=== PATIENT | male | born 1970 | race Caucasian/White ===

== ENCOUNTER 2018-10-01 17:42 | Emergency (ER) | payer OTHER ==
[2018-10-01 18:03] VITALS: TEMP 97.9; BMI 29.0
[2018-10-01] MEDS ORDERED: ASPIRIN 81 MG CHEWABLE TABLETS PO ONE (20:27)
[2018-10-01] MEDS ORDERED: SODIUM CHLORIDE 1,000 ML IV STA (20:27)
--- NOTE | 2018-10-01 20:36 | PDOC ---
History of Present Illness <Christy Valenzuela - Last Filed: 10/01/18 22:12> - General History Source: Patient Exam Limitations: No Limitations - History of Present Illness Initial Comments: 10/01/18 20:26 HISTORY OF PRESENT ILLNESS: This is a 48-year-old male denies medical history presents emergency department for evaluation of intermittent sternal chest pain and epigastric pain over the past 2 days. States the pain started while he was at rest and the pain spontaneously resolves. Patient reports one episode of vomiting today which was undigested food. Patient states she was seen and evaluated in [facility] on 09/30 and was given meloxicam for [place] skeletal pain. He states no EKG or blood testing was performed at that time. Denies any shortness of breath, dizziness, fevers, chills, diarrhea. No recent travel or sick contacts. PAST MEDICAL HISTORY: Denies past medical history SURGICAL HISTORY: Denies ALLERGIES: No known drug allergies REVIEW OF SYSTEMS General/Constitutional: Denies fever or chills. Denies weakness, weight change. HEENT: Denies change in vision. Denies ear pain or discharge. Denies sore throat. Cardiovascular: Reports midsternal chest pain. Denies shortness of breath. Respiratory: Denies cough, wheezing, or hemoptysis. Gastrointestinal: (+)Epigastric pain and vomiting. Denies nausea, diarrhea or constipation. Denies rectal bleeding. Genitourinary: Denies dysuria, frequency, or change in urination. Musculoskeletal: Denies joint or muscle swelling or pain. Denies neck or back pain. Skin and breasts: Denies rash or easy bruising. Neurologic: Denies headache, vertigo, loss of consciousness, or loss of sensation. Psychiatric: Denies depression or anxiety. Endocrine: Denies increased thirst. Denies abnormal weight change. Hematologic/Lymphatic: Denies anemia, easy bleeding, or history of blood clots. Allergic/Immunologic: Denies hives or skin allergy. Denies latex allergy. PHYSICAL EXAM General Appearance: Well-appearing, appropriately dressed. No apparent distress , no intoxication. HEENT: EOMI, PERRLA, normal ENT inspection, normal voice, TMs normal, pharynx normal. No conjunctival pallor. No photophobia, scleral icterus. Neck: Supple. Trachea midline. No tenderness, rigidity, carotid bruit, stridor , lymphadenopathy, or thyromegaly. Respiratory/Chest: Lungs CTAB. No shortness of breath, chest tenderness, respiratory distress, accessory muscle use. No crackles, rales, rhonchi, stridor , wheezing, dullness Cardiovascular: RRR. S1, S2. No JVD, murmur, bradycardia, tachycardia. Vascular Pulses: Dorsalis-Pedis (R): 2+, Dorsalis-Pedis (L): 2+ Gastrointestinal/Abdominal: Normal bowel sounds. Abdomen soft, non-distended. No tenderness or rebound tenderness. No organomegaly, pulsatile mass, guarding, hernia, hepatomegaly, splenomegaly. Lymphatic: No adenopathy, tenderness. Musculoskeletal/Extremities: Normal inspection. FROM of all extremities, normal capillary refill. Pelvis Stable. No CVA tenderness. No tenderness to extremities, pedal edema, swelling, erythema or deformity. Integumentary: Appropriate color, dry, warm. No cyanosis, erythema, jaundice or rash Neurologic: welt edge rounder II-XII intact. Fully oriented, alert. Appropriate mood/affect. Motor strength 5/5. No appreciable EOM palsy, facial droop or sensory deficit. <Juan J Lamar - Last Filed: 10/01/18 22:41> - General Chief Complaint: Chest Pain Stated Complaint: CHEST PAIN/ABD PAIN Time Seen by Provider: 10/01/18 19:48 Past History <Christy Valenzuela - Last Filed: 10/01/18 22:12> - Past Medical History COPD: No - Suicide/Smoking/Psychosocial Hx Smoking History: Never smoked Hx Alcohol Use: No Drug/Substance Use Hx: No <Juan J Lamar - Last Filed: 10/01/18 22:41> - Past Medical History Allergies/Adverse Reactions: Allergies Allergy/AdvReac Type Severity Reaction Status Date / Time No Known Allergies Allergy Verified 10/01/18 17:59 Home Medications: Ambulatory Orders Cyclobenzaprine HCl [Flexeril] 5 mg PO TID #10 tablet 02/12/15 Ibuprofen [Motrin -] 600 mg PO QID #28 tablet 02/12/15 *Physical Exam - Vital Signs Last Vital Signs Temp Pulse Resp BP Pulse Ox 97.9 F 67 18 144/89 99 10/01/18 17:59 10/01/18 17:59 10/01/18 17:59 10/01/18 17:59 10/01/18 17:59 <Christy Valenzuela - Last Filed: 10/01/18 22:12> - Vital Signs Last Vital Signs Temp Pulse Resp BP Pulse Ox 97.9 F 67 18 144/89 99 10/01/18 17:59 10/01/18 17:59 10/01/18 17:59 10/01/18 17:59 10/01/18 17:59 <Juan J Lamar - Last Filed: 10/01/18 22:41> Moderate Sedation - Procedure Monitoring Vital Signs: Procedure Monitoring Vital Signs Temperature 97.9 F 10/01/18 17:59 Pulse Rate 67 10/01/18 17:59 Respiratory Rate 18 10/01/18 17:59 Blood Pressure 144/89 10/01/18 17:59 O2 Sat by Pulse Oximetry (%) 99 10/01/18 17:59 <Christy Valenzuela - Last Filed: 10/01/18 22:12> - Procedure Monitoring Vital Signs: Procedure Monitoring Vital Signs Temperature 97.9 F 10/01/18 17:59 Pulse Rate 67 10/01/18 17:59 Respiratory Rate 18 10/01/18 17:59 Blood Pressure 144/89 10/01/18 17:59 O2 Sat by Pulse Oximetry (%) 99 10/01/18 17:59 <Juan J Lamar - Last Filed: 10/01/18 22:41> Heart Score/ECG Review - ECG Intrepretation Rhythm: Regular Rhythm - [place]: Normal - P and AL Prominent R with upright T in V1 (true posterior MA): No Delta Wave(s) Present: No WPW: No - QRS Poor R Wave Progression: No Q Wave Present: No - ST and T Early Repolarization: No Non Specific ST-T Wave changes: No Flattened T Waves: No Prolonged Q-T Interval: No - ECG Impressions Normal ECG: Yes Non-specific ST Elevation: No Ischemic Changes: No (only one lead -insignificant) <Christy Valenzuela - Last Filed: 10/01/18 22:12> - History History: Slightly suspicious - Electrocardiogram EKG: Normal - Age Age: 45-65 - Risk Factors Based on the list above the patient has:: No risk factors known - Troponin Troponin: </= normal limit - Score Heart Score - Total: 1 <Juan J Lamar - Last Filed: 10/01/18 22:41> ED Treatment Course - LABORATORY CBC & Chemistry Diagram: 10/01/18 20:41 10/01/18 20:41 - ADDITIONAL ORDERS Additional order review: Laboratory Results 10/01/18 10/01/18 20:41 20:41 PT with INR 12.20 INR 1.03 Sodium 141 Potassium 3.9 Chloride 105 Carbon Dioxide 30 Anion Gap 5 L BUN 19 H Creatinine 1.1 Creat Clearance w eGFR > 60 Random Glucose 123 H Calcium 8.6 Magnesium 2.0 Total Bilirubin 0.5 AST 14 L ALT 23 Alkaline Phosphatase 49 Creatine Kinase 256 Troponin I < 0.02 Total Protein 7.2 Albumin 3.9 Lipase 143 10/01/18 20:41 RBC 4.49 MCV 91.7 MCHC 34.8 RDW 14.0 MPV 9.2 Neutrophils % 66.5 Lymphocytes % 25.6 Monocytes % 7.5 Eosinophils % 0.1 Basophils % 0.3 - Medications Given in the ED: ED Medications Discontinued Medications Generic Name Dose Route Start Last Admin Trade Name Freq PRN Reason Stop Dose Admin Aspirin 162 mg 10/01/18 20:27 10/01/18 21:25 Asa - PO 10/01/18 20:28 162 mg ONCE ONE Administration Sodium Chloride 1,000 mls @ 1,000 mls/hr 10/01/18 20:27 10/01/18 21:25 Normal Saline - IV 10/01/18 21:26 1,000 mls/hr ASDIR STA Administration <Christy Valenzuela - Last Filed: 10/01/18 22:12> - LABORATORY CBC & Chemistry Diagram: 10/01/18 20:41 10/01/18 20:41 <Juan J Lamar - Last Filed: 10/01/18 22:41> Medical Decision Making - Medical Decision Making 10/01/18 20:50 A/P: 48-year-old male with intermittent chest and epigastric pain for 2 days Lungs clear to auscultation bilaterally No chest tenderness noted S1 and S2 present. No murmur, rub or gallop noted. Abdomen soft nontender nondistended Differential diagnosis includes but not limited to: ACS, GERD, pneumonia, musculoskeletal pain, hiatal hernia Labs, urine, EKG, chest x-ray. Likely discharge 10/01/18 22:39 Chest x-rays read by me: No pneumothorax is seen. Angles are clear. Cardiac silhouette is within normal limits. No focal consolidations or infiltrates present. EKG reviewed by me as interpreted by Dr. Valenzuela sinus rhythm with rate of 73. Normal intervals noted. Laboratory testing is unremarkable with normal troponin. WBC 11,000 without a shift. Likely reactive. I'll discharge the patient home to follow-up with his primary doctor for continued evaluation. I discussed the physical exam findings, ancillary test results and final diagnoses with the patient. I answered all of the patient's questions. The patient was satisfied with the care received and felt comfortable with the discharge plan and treatment plan. The patient will call their primary care physician within 24 hours to arrange follow-up and will return to the Emergency Department with any new, persistent or worsening symptoms. <Juan J Lamar - Last Filed: 10/01/18 22:41> *DC/Admit/Observation/Transfer <Christy Valenzuela - Last Filed: 10/01/18 22:12> - Discharge Dispostion Decision to Admit order: No <Juan J Lamar - Last Filed: 10/01/18 22:41> Diagnosis at time of Disposition: Chest pain, atypical - Discharge Dispostion Disposition: HOME Condition at time of disposition: Stable - Referrals Referrals: Julia Cunha MD [Staff Physician] - - Patient Instructions Printed Discharge Instructions: DI for Atypical Chest Pain Additional Instructions: Return to emergency department for any worsening chest pain, shortness of breath , dizziness, sweating, or any other concerns.
[2018-10-01 20:51] LABS: BASO % 0.3 % (0-2.0); EOS % 0.1 % (0-4.5); HEMATOCRIT 41.2 % (35.4-49); HEMOGLOBIN 14.3 GM/dL (11.7-16.9); LYMPH % 25.6 % (8-40); MCH 31.9 pg (25.7-33.7); MCHC 34.8 g/dl (32.0-35.9); MEAN CELL VOLUME 91.7 fl (80-96); MEAN PLT VOLUME 9.2 fl (7.5-11.1); MONO % 7.5 % (3.8-10.2); NEUT % 66.5 % (42.8-82.8); PLATELET COUNT 217 K/MM3 (134-434); RBC 4.49 M/mm3 (4.00-5.60)
[2018-10-01 21:15] LABS: INR 1.03 (0.83-1.09); PROTHROMBIN TIME (PATIENT) 12.2 SEC (9.7-13.0)
[2018-10-01] MEDS ORDERED: ASPIRIN 81 MG CHEWABLE TABLETS ONE (21:23)
[2018-10-01 22:02] LABS: ALBUMIN 3.9 g/dl (3.4-5.0); ALK PHOS 49 U/L (45-117); ANION GAP 5 MMOL/L (8-16); BILIRUBIN,TOTAL 0.5 mg/dL (0.2-1); BLOOD UREA NITROGEN 19 mg/dL (7-18); CALCIUM 8.6 mg/dL (8.5-10.1); CHLORIDE 105 mmol/L (98-107); CO2 30 mmol/L (21-32); CREATININE 1.1 mg/dL (0.55-1.3); GLUCOSE,RANDOM 123 mg/dL (74-106); LIPASE 143 U/L (73-393); POTASSIUM 3.9 mmol/L (3.5-5.1); SGOT/AST 14 U/L (15-37); SGPT/ALT 23 U/L (13-61); SODIUM 141 mmol/L (136-145); TOT PROT 7.2 g/dl (6.4-8.2)
[2018-10-01] MEDS ORDERED: MAG HYDROX/AL HYDROX/SIMETH 30 ML UNIT-DOSE CUP PO ONE (22:07)
[2018-10-01] MEDS ORDERED: RANITIDINE HCL 150 MG TABLET (FP) PO ONE (22:07)
[2018-10-01] MEDS ORDERED: LIDOCAINE VISCOUS 2% ORAL/TOP 20 ML UNIT-DOSE CUP PO ONE (22:07)
[2018-10-01] MEDS ORDERED: RANITIDINE HCL 150 MG TABLET (FP) ONE (22:31)
[2018-10-01] MEDS ORDERED: LIDOCAINE VISCOUS 2% ORAL/TOP 20 ML UNIT-DOSE CUP ONE (22:31)
[2018-10-01] MEDS ORDERED: MAG HYDROX/AL HYDROX/SIMETH 30 ML UNIT-DOSE CUP ONE (22:32)
[2018-10-01 22:48] VITALS: BP 140/86; PULSE 80
--- NOTE | 2018-10-02 13:09 | EKG ---
Test Reason : Blood Pressure : / mmHG Vent. Rate : 073 BPM Atrial Rate : 073 BPM P-R Int : 166 ms QRS Dur : 076 ms QT Int : 394 ms P-R-T Axes : 054 047 036 degrees QTc Int : 434 ms POOR DATA QUALITY, INTERPRETATION MAY BE ADVERSELY AFFECTED NORMAL SINUS RHYTHM WITH SINUS ARRHYTHMIA MINIMAL VOLTAGE CRITERIA FOR LVH, MAY BE NORMAL VARIANT EARLY REPOLARIZATION NO PREVIOUS ECGS AVAILABLE Confirmed by JEAN-CLAUDE SANTORO, DIANE ([id number]) on 10/02/2018 1:08:54 PM Referred By: Confirmed By:DIANE BERMEO MD
--- NOTE | 2018-10-04 11:01 | EKG ---
Test Reason : Blood Pressure : / mmHG Vent. Rate : 067 BPM Atrial Rate : 067 BPM P-R Int : 180 ms QRS Dur : 088 ms QT Int : 410 ms P-R-T Axes : 045 032 026 degrees QTc Int : 433 ms NORMAL SINUS RHYTHM MINIMAL VOLTAGE CRITERIA FOR LVH, MAY BE NORMAL VARIANT BORDERLINE ECG NO PREVIOUS ECGS AVAILABLE Confirmed by SILVIANO BOND MD ([id number]) on 10/04/2018 11:00:50 AM Referred By: Confirmed By:SILVIANO BOND MD
== END 2018-10-01 22:48 | disposition home or self-care (01) ==
LOC: JER 17:42
PROC: 3E0337Z Introduction of Electrolytic and Water Balance Substance into Peripheral Vein, Percutaneous Approach (ICD-10-PCS; principal; 2018-10-01)
DX: R07.9 Chest pain, unspecified (principal)
CPT/HCPCS: 36415; 71046-TC-FY; 80053; 82550; 82553; 83690; 83735; 84484; 85025; 85610; 93005; 93010; 96360; 99283-25; J7030